=== PATIENT | male | born 1930 | race Caucasian/White ===

== ENCOUNTER 2020-10-14 08:11 | Observation (INO) | payer OTHER ==
[2020-10-14 10:27] LABS: BASO % 0.8 % (0-2.0); EOS % 1.2 % (0-4.5); HEMATOCRIT 43.2 % (35.4-49); HEMOGLOBIN 14.1 GM/dL (11.7-16.9); LYMPH % 20.1 % (8-40); MCH 29.1 pg (25.7-33.7); MCHC 32.8 g/dl (32.0-35.9); MEAN CELL VOLUME 88.9 fl (80-96); MEAN PLT VOLUME 8.1 fl (7.5-11.1); MONO % 7.9 % (3.8-10.2); PLATELET COUNT 146 K/MM3 (134-434); RBC 4.86 M/mm3 (4.00-5.60); RDW 14.3 % (11.9-15.9); WHITE BLOOD COUNT 7.3 K/mm3 (4.0-10.0)
[2020-10-14 10:55] LABS: CALCIUM 9.2 mg/dL (8.5-10.1)
[2020-10-14 10:56] LABS: ALBUMIN 3.5 g/dl (3.4-5.0); BLOOD UREA NITROGEN 17.8 mg/dL (7-18)
[2020-10-14 11:01] LABS: BILIRUBIN,TOTAL 0.6 mg/dL (0.2-1); TOT PROT 7.3 g/dl (6.4-8.2)
[2020-10-15 01:35] VITALS: BMI 30.9
[2020-10-15 10:07] LABS: BASO % 0.7 % (0-2.0); EOS % 2.1 % (0-4.5); HEMATOCRIT 42.4 % (35.4-49); HEMOGLOBIN 14.1 GM/dL (11.7-16.9); LYMPH % 33.8 % (8-40); MCH 29.6 pg (25.7-33.7); MCHC 33.3 g/dl (32.0-35.9); MEAN CELL VOLUME 88.9 fl (80-96); MEAN PLT VOLUME 8.3 fl (7.5-11.1); MONO % 8.4 % (3.8-10.2); PLATELET COUNT 140 K/MM3 (134-434); RBC 4.77 M/mm3 (4.00-5.60); RDW 14.3 % (11.9-15.9); WHITE BLOOD COUNT 6.4 K/mm3 (4.0-10.0)
[2020-10-15 10:21] LABS: ALBUMIN 3.3 g/dl (3.4-5.0); BLOOD UREA NITROGEN 19.6 mg/dL (7-18)
[2020-10-15 10:25] LABS: BILIRUBIN,TOTAL 0.9 mg/dL (0.2-1)
[2020-10-16 06:52] VITALS: PULSE 77
[2020-10-16 13:05] VITALS: BP 135/50; TEMP 98.9
== END 2020-10-16 15:59 | disposition home health service (06) ==
LOC: JER 08:11 → UNDOADMOB 09:39 → JERBED 09:39 → INTOOBSV 09:39 → JERBED 21:51 → J5S 21:51 → JERBED 10-15 14:30 → J5S 10-15 14:30
PROVIDERS: ADMIT Internal Medicine; ATTEND Internal Medicine
PROC: 3E03329 Introduction of Other Anti-infective into Peripheral Vein, Percutaneous Approach (ICD-10-PCS; principal; 2020-10-15)
PROC: 3E013VG Introduction of Insulin into Subcutaneous Tissue, Percutaneous Approach (ICD-10-PCS; 2020-10-15)
PROC: 3E023GC Introduction of Other Therapeutic Substance into Muscle, Percutaneous Approach (ICD-10-PCS; 2020-10-15)
DX: M86.9 Osteomyelitis, unspecified (principal); E66.9 Obesity, unspecified; I25.810 Atherosclerosis of coronary artery bypass graft(s) without angina pectoris; Z88.0 Allergy status to penicillin; Z87.891 Personal history of nicotine dependence; E11.9 Type 2 diabetes mellitus without complications; E78.5 Hyperlipidemia, unspecified; I11.9 Hypertensive heart disease without heart failure; Z95.0 Presence of cardiac pacemaker; Z68.31 Body mass index [BMI] 31.0-31.9, adult; Z29.9 Encounter for prophylactic measures, unspecified
CPT/HCPCS: 36415; 36569; 71045-TC-FY; 73610-TC-RT-FY; 73630-TC-RT-FY; 77001-TC-FY; 80053; 82962; 83605; 85025; 87040; 93005; 93010; 96365; 96372; 99285-25; C1751; C9803; G0378; U0003